=== PATIENT | male | born 1940 | race Two or more races ===

== ENCOUNTER 2018-02-09 09:13 | Outpatient (CLI) | payer OTHER ==
[~2018-02-09 09:13] MED LIST: DIOVAN320 MG; GLUCOPHAGE XR500 MG; MUPIROCIN15 GM TP; [UNRECOGNIZED DRUG - OTHER] PO
== END 2018-02-09 15:00 | disposition home or self-care (01) ==
LOC: SONOGRAMA 09:13 → MAMO-SONO 10:15 → SONOGRAMA 15:00
DX: M75.52 Bursitis of left shoulder (principal)

== ENCOUNTER 2018-02-09 09:21 | Outpatient (CLI) | payer OTHER | END 2018-02-09 15:00 | disposition home or self-care (01) | LOC: RAD 09:21 | DX: M75.52 Bursitis of left shoulder (principal) ==

== ENCOUNTER 2018-06-29 14:31 | Outpatient (CLI) | payer OTHER | END 2018-06-29 15:39 | disposition home or self-care (01) | LOC: NUCLEAR 14:31 | DX: I73.9 Peripheral vascular disease, unspecified (principal); I70.219 Atherosclerosis of native arteries of extremities with intermittent claudication, unspecified extremity ==

== ENCOUNTER 2018-09-09 10:05 | Outpatient (CLI) | payer OTHER | END 2018-09-09 10:12 | disposition home or self-care (01) | LOC: RAD 10:05 | DX: R06.02 Shortness of breath (principal); M47.814 Spondylosis without myelopathy or radiculopathy, thoracic region; M43.06 Spondylolysis, lumbar region ==

== ENCOUNTER 2021-08-21 08:00 | Outpatient (CLI) | payer OTHER | END 2021-08-21 08:30 | disposition home or self-care (01) | LOC: PPH VACUNA 08:00 | PROVIDERS: ATTEND Emergency Medicine Pediatric Emergency Medicine | DX: Z23 Encounter for immunization (principal) ==

== ENCOUNTER 2023-06-25 07:42 | Outpatient (CLI) | payer OTHER | END 2023-06-25 07:51 | disposition home or self-care (01) | LOC: TOM 07:42 | PROVIDERS: ATTEND Internal Medicine Gastroenterology | DX: D21.4 Benign neoplasm of connective and other soft tissue of abdomen (principal); R10.9 Unspecified abdominal pain; K59.00 Constipation, unspecified; R10.2 Pelvic and perineal pain | CPT/HCPCS: 74177; Q9965 ==

== ENCOUNTER 2023-07-17 07:11 | Outpatient (CLI) | payer OTHER | END 2023-07-17 07:12 | disposition home or self-care (01) | LOC: NUCLEAR 07:11 | PROVIDERS: ATTEND Urology | DX: C61 Malignant neoplasm of prostate (principal) | CPT/HCPCS: 78306; A9503 ==